=== PATIENT | female | born 1990 | race Caucasian/White ===

== ENCOUNTER 2018-11-15 11:50 | Outpatient (CLI) | payer OTHER ==
[~2018-11-15] VITALS: Ht 152.4 cm; Wt 74.5 kg
[2018-11-15 11:57] VITALS: BP 110/64
== END 2018-11-15 12:25 | disposition home or self-care (01) ==
LOC: LDOP 11:50
PROVIDERS: ATTEND Student in an Organized Health Care Education/Training Program
DX: O36.8130 Decreased fetal movements, third trimester, not applicable or unspecified (principal); Z3A.32 32 weeks gestation of pregnancy
CPT/HCPCS: 59025; 99201; G0463

== ENCOUNTER 2019-01-03 21:46 | Inpatient (IN) | payer OTHER ==
[~2019-01-03] VITALS: Ht 153.2 cm; Wt 79.0 kg
[2019-01-03] MEDS ORDERED: OXYTOCIN 30U/ 0.9% NaCL 500ML 500 ML IV ONE (23:31)
[2019-01-03] MEDS ORDERED: D5%-LACTATED RINGERS 1,000 ML IV SCH (23:31)
[2019-01-03] MEDS ORDERED: OXYTOCIN 30U/ 0.9% NaCL 500ML 500 ML IV PRN (23:31)
[2019-01-04] MEDS ORDERED: FENTANYL PF 100 MCG/2ML IV PRN
[2019-01-04] MEDS ORDERED: SODIUM CITRATE/CITRIC ACID 15 ML UDC PO PRN
[2019-01-04] MEDS ORDERED: FENTANYL PF 100 MCG/2ML IVPush PRN
[2019-01-04] MEDS ORDERED: TERBUTALINE 1 MG/ML, 1ML IVPush PRN
[2019-01-04] MEDS ORDERED: METOCLOPRAMIDE 5 MG/ML, 2ML IVPush PRN
[2019-01-04 00:09] LABS: BASOPHILS # (AUTO) 0.06 x10^3/uL (0-0.1); BASOPHILS % (AUTO) 1 % (0-1); EOSINOPHILS # (AUTO) 0.24 x10^3/uL (0-0.4); EOSINOPHILS % (AUTO) 2 % (1-7); LYMPHOCYTES # (AUTO) 2.29 x10^3/uL (1-3.4); LYMPHOCYTES % (AUTO) 21 % (22-44); MD NO; MEAN CORPUSCULAR HEMOGLOBIN 28.7 pg (27.0-34.8); MEAN CORPUSCULAR HGB CONC 33.4 g/dL (32.4-35.8); MEAN CORPUSCULAR VOLUME 86.1 fL (80-100); MEAN PLATELET VOLUME 9.7 fL (7.4-10.4); MONOCYTES % (AUTO) 7 % (2-9); NEUTROPHILS # (AUTO) 7.77 x10^3/uL (1.8-6.8); NEUTROPHILS % (AUTO) 70 % (42-75); PLATELET COUNT 224 x10^3/uL (130-400); RED BLOOD COUNT 4.52 x10^6/uL (3.82-5.3); RED CELL DISTRIBUTION WIDTH 14.4 % (9.6-15.2)
[2019-01-04] MEDS ORDERED: NEWBORN KIT ONE (00:25)
[2019-01-04] MEDS ORDERED: OXYTOCIN 30U/ 0.9% NaCL 500ML 500 ML ONE (06:56)
[2019-01-04] MEDS: LACTATED RINGERS 1,000 ML IV SCH ×3 (07:15→23:01)
[2019-01-04] MEDS ORDERED: LIDOCAINE/PF 1.5%-EPI 1:200K, 30ML ONE (14:53)
[2019-01-04] MEDS ORDERED: FENTANYL/BUPIV./NS/PF 250 ML EPIDCONT ONE (14:54)
[2019-01-04] MEDS ORDERED: LACTATED RINGERS 1,000 ML IV SCH ×2 (15:21→23:01)
[2019-01-04] MEDS ORDERED: FENTANYL/BUPIV./NS/PF 250 ML EPIDCONT SCH (15:21)
[2019-01-04] MEDS ORDERED: LACTATED RINGERS 1,000 ML IVBOLUS PRN (15:30)
[2019-01-04] MEDS ORDERED: EPHEDRINE 50 MG/ML, 1ML IVPush PRN (15:30)
[2019-01-04] MEDS ORDERED: NALOXONE 0.4 MG/ML, 1ML IVPush PRN (15:30)
[2019-01-04] MEDS ORDERED: FENTANYL PF 500 MCG, BUPIVACAINE/PF 0.5%, 30ML 62.5 ML in SODIUM CHLORIDE 0.9% 177.5 ML EPIDCONT SCH (16:00)
[2019-01-04] MEDS ORDERED: LACTATED RINGERS 1,000 ML INTUTE SCH (18:00)
[2019-01-04] MEDS ORDERED: LACTATED RINGERS 1,000 ML INTUTE PRN (18:00)
[2019-01-04] MEDS ORDERED: METOCLOPRAMIDE 5 MG/ML, 2ML ONE (21:24)
[2019-01-04] MEDS ORDERED: SODIUM CITRATE/CITRIC ACID 15 ML UDC ONE (21:24)
[2019-01-04] MEDS ORDERED: SODIUM CITRATE/CITRIC ACID 15 ML UDC PO ONE (21:30)
[2019-01-04] MEDS ORDERED: CALCIUM CARBONATE 500 MG TAB.CHEW PO PRN ×2 (21:30→23:30)
[2019-01-04] MEDS ORDERED: METOCLOPRAMIDE 5 MG/ML, 2ML IV ONE (21:30)
[2019-01-04] MEDS ORDERED: ONDANSETRON 2MG/ML, 2ML IVPush ONE (21:30)
[2019-01-04] MEDS ORDERED: AZITHROMYCIN 500 MG in SODIUM CHLORIDE 0.9% 250 ML IV STA (21:31)
[2019-01-04] MEDS ORDERED: CEFAZOLIN 1,000 MG ONE (22:21)
[2019-01-04] MEDS ORDERED: OXYTOCIN 10 UNITS/ML, 1ML ONE (22:21)
[2019-01-04] MEDS ORDERED: morphine SULFATE 10 MG/ML, 1ML ONE (22:24)
[2019-01-04] MEDS ORDERED: KETOROLAC 30 MG/1 ML ONE (22:32)
[2019-01-04] MEDS: OXYTOCIN 30U/ 0.9% NaCL 500ML 500 ML IV SCH (23:01)
[2019-01-04] MEDS ORDERED: ACETAMINOPHEN 325 MG TABLET PO SCH (23:30)
[2019-01-04] MEDS ORDERED: SIMETHICONE 80 MG CHEW TAB PO PRN (23:30)
[2019-01-04] MEDS ORDERED: BISACODYL 10 MG SUPP PR PRN (23:30)
[2019-01-04] MEDS ORDERED: CLINDAMYCIN 150 MG/ML, 6ML IM SCH (23:30)
[2019-01-04] MEDS ORDERED: MISOPROSTOL 200 MCG TABLET PR PRN (23:30)
[2019-01-04] MEDS ORDERED: morphine SULFATE 10 MG/ML, 1ML IM PRN (23:30)
[2019-01-04] MEDS ORDERED: ONDANSETRON 2MG/ML, 2ML IV PRN (23:30)
[2019-01-04] MEDS ORDERED: MORPHINE SULFATE 4 MG/ML, 1ML IVPush PRN (23:30)
[2019-01-04] MEDS ORDERED: OXYcodone IR 5MG TABLET PO PRN ×2 (23:30)
[2019-01-04] MEDS ORDERED: ACETAMINOPHEN 325 MG TABLET PO PRN (23:30)
[2019-01-05] MEDS: GENTAMICIN 400 MG in SODIUM CHLORIDE 0.9% 100 ML IV SCH ×2 (00:13→23:05)
[2019-01-05 01:50] VITALS: BP 116/71
[2019-01-05] MEDS: CLINDAMYCIN PMX 900MG/50ML 50 ML IV SCH ×3 (02:02→17:29)
[2019-01-05] MEDS: AMPICILLIN 2 GM in SODIUM CHLORIDE 0.9% 100 ML IV SCH ×4 (02:52→21:01)
[2019-01-05] MEDS: KETOROLAC 30 MG/1 ML IV SCH ×4 (05:20→23:04)
[2019-01-05 05:30] VITALS: BP 108/63
[2019-01-05 06:42] LABS: MEAN CORPUSCULAR HEMOGLOBIN 28.9 pg (27.0-34.8); MEAN CORPUSCULAR HGB CONC 33.5 g/dL (32.4-35.8); MEAN CORPUSCULAR VOLUME 86.3 fL (80-100); RED BLOOD COUNT 3.83 x10^6/uL (3.82-5.3); RED CELL DISTRIBUTION WIDTH 14.8 % (9.6-15.2)
[2019-01-05 06:51] LABS: MEAN PLATELET VOLUME 9.6 fL (7.4-10.4); PLATELET COUNT 172 x10^3/uL (130-400)
[2019-01-05 07:04] LABS: MD YES
[2019-01-05 07:08] LABS: BANDS%(MANUAL) 19 % (0-7); LYMPH#(MANUAL) 0.73 x10^3/uL (1-3.4); LYMPHS% (MANUAL) 3 % (22-44); MONOS#(MANUAL) 0.48 x10^3/uL (0.3-2.7); MONOS% (MANUAL) 2 % (2-9); SEG#(MANUAL) 18.39 x10^3/uL (1.8-6.8); SEGS% (MANUAL) 76 % (42-75)
[2019-01-05 07:10] LABS: <PLATELET ESTIMATE> ADEQUATE; <RBC MORPHOLOGY> NORMAL
[2019-01-05 07:11] LABS: <PLT MORPHOLOGY> NORMAL PLT MORPH
[2019-01-05] MEDS ORDERED: CLINDAMYCIN 150 MG/ML, 6ML IV SCH (07:30)
[2019-01-05 08:00] VITALS: BP 116/68
[2019-01-05] MEDS: ACETAMINOPHEN 500 MG TABLET PO SCH ×3 (08:55→21:01)
[2019-01-05] MEDS: PRENATAL VIT/IRON/FA 1 EACH TABLET PO SCH (08:55)
[2019-01-05] MEDS: DOCUSATE 100 MG CAPSULE PO PRN (08:55)
[2019-01-05] MEDS: LACTATED RINGERS 1,000 ML IV SCH ×3 (09:01→23:08)
[2019-01-05] MEDS: OXYTOCIN 30U/ 0.9% NaCL 500ML 500 ML IV SCH ×2 (09:01→19:01)
[2019-01-05 12:00] VITALS: BP 133/73
[2019-01-05 16:30] VITALS: BP 122/68
[2019-01-05 20:02] VITALS: BP 100/62
[2019-01-05] MEDS ORDERED: KETOROLAC 30 MG/1 ML ONE (23:01)
[2019-01-05] MEDS: IBUPROFEN 600 MG TABLET PO SCH (23:30)
[2019-01-06 00:30] VITALS: BP 118/66
[2019-01-06] MEDS: CLINDAMYCIN PMX 900MG/50ML 50 ML IV SCH ×3 (01:27→17:30)
[2019-01-06] MEDS: ACETAMINOPHEN 500 MG TABLET PO SCH ×4 (02:35→19:40)
[2019-01-06] MEDS: AMPICILLIN 2 GM in SODIUM CHLORIDE 0.9% 100 ML IV SCH ×4 (02:35→21:09)
[2019-01-06 03:56] VITALS: BP 116/72
[2019-01-06] MEDS: LACTATED RINGERS 1,000 ML IV SCH ×2 (05:01→15:01)
[2019-01-06] MEDS: OXYTOCIN 30U/ 0.9% NaCL 500ML 500 ML IV SCH ×2 (05:01→15:01)
[2019-01-06] MEDS: IBUPROFEN 600 MG TABLET PO SCH ×3 (05:51→19:40)
[2019-01-06 07:45] VITALS: BP 110/58
[2019-01-06] MEDS: PRENATAL VIT/IRON/FA 1 EACH TABLET PO SCH (08:46)
[2019-01-06] MEDS: DOCUSATE 100 MG CAPSULE PO PRN (08:47)
[2019-01-06 12:30] VITALS: BP 104/65
[2019-01-06 20:00] VITALS: BP 100/80
[2019-01-07 00:30] VITALS: BP 114/71
[2019-01-07] MEDS: OXYTOCIN 30U/ 0.9% NaCL 500ML 500 ML IV SCH (01:01)
[2019-01-07] MEDS: LACTATED RINGERS 1,000 ML IV SCH (01:01)
[2019-01-07] MEDS: IBUPROFEN 600 MG TABLET PO SCH ×2 (02:14→09:36)
[2019-01-07] MEDS: ACETAMINOPHEN 500 MG TABLET PO SCH ×2 (02:14→09:37)
[2019-01-07 05:45] VITALS: BP 115/66
[2019-01-07 07:45] VITALS: BP 115/71
[2019-01-07] MEDS ORDERED: IBUP-1222 PO (09:31)
[2019-01-07] MEDS ORDERED: OXYC-302 PO (09:31)
[2019-01-07] MEDS: PRENATAL VIT/IRON/FA 1 EACH TABLET PO SCH (09:38)
== END 2019-01-07 13:40 | disposition home or self-care (01) | DRG 786 ==
LOC: LDOP 21:46 → LDIP 22:27 → 2NW 01-04 22:45
PROVIDERS: ADMIT Student in an Organized Health Care Education/Training Program; ATTEND Student in an Organized Health Care Education/Training Program
PROC: 10D00Z1 Extraction of Products of Conception, Low, Open Approach (ICD-10-PCS; principal; 2019-01-05)
DX: O42.92 Full-term premature rupture of membranes, unspecified as to length of time between rupture and onset of labor (principal); O41.1230 Chorioamnionitis, third trimester, not applicable or unspecified; O99.354 Diseases of the nervous system complicating childbirth; O76 Abnormality in fetal heart rate and rhythm complicating labor and delivery; Z37.0 Single live birth; Z3A.39 39 weeks gestation of pregnancy; G89.18 Other acute postprocedural pain; O99.344 Other mental disorders complicating childbirth; F32.9 Major depressive disorder, single episode, unspecified; G43.909 Migraine, unspecified, not intractable, without status migrainosus; Z88.0 Allergy status to penicillin; Z91.040 Latex allergy status; O90.89 Other complications of the puerperium, not elsewhere classified
CPT/HCPCS: 36415; 82803; 85025; 86850; 86900; 88305; G0378; J0290; J0690; J1885; J3010; J3490; J1580; J2270; J2590; J2765; J7050; J7120